=== PATIENT | male | born 1970 ===

== ENCOUNTER 2018-04-09 13:57 | Inpatient (IN) ==
[2018-04-09] MEDS ORDERED: PROMETHAZINE 25 MG/1 ML VIAL IM PRN (17:20)
[2018-04-09] MEDS ORDERED: ONDANSETRON 4 MG/2 ML VIAL IV PRN (17:20)
[2018-04-09] MEDS ORDERED: NICOTINE 21 MG/24 HR PATCH TRANSDERM PRN (17:26)
[2018-04-09] MEDS: SODIUM CHLORIDE 0.9% 1,000 ML IV SCH (17:49)
[2018-04-09] MEDS: PIPERACILLIN/TAZOBACTAM 3,375 MG in SODIUM CHLORIDE 0.9% 100 ML IV SCH (17:49)
[2018-04-09 18:48] LABS: Basophils % 0.4 % (0.0-0.8); Eosinophils % 0.3 % (0.00-10.9); Hematocrit 48.5 VOL% (42.0-52.0); Immature Granulocytes % 0.3 %; Immature Granulocytes Absolute 0.03 #; Lymphocytes # 1.3 10*3/uL (1.4-4.0); Lymphocytes % 12.2 % (21.2-54.2); Mean Corpuscular Hemoglobin 31 PG (27-34); Mean Corpuscular Volume 92.4 FL (87-102); Mean Platelet Volume 8.9 FL (9.6-12.0); Monocytes # 1.1 10*3/uL (0.11-0.8); Monocytes % 9.9 % (1.7-12.7); Neutrophils # 8.2 10*3/uL (1.4-7.4); Neutrophils % 76.9 % (38.7-73.9); Platelet Count 169 T/CUMM (130-400); Red Blood Count 5.25 MC/CUMM (3.8-5.5); Red Cell Distribution Width 14.2 % (9.3-17.3); White Blood Count 10.7 T/CUMM (4-12)
[2018-04-09] MEDS: KETOROLAC 30 MG/1 ML VIAL IV SCH ×2 (18:49→23:32)
[2018-04-09 18:56] LABS: INR 1.1; PT Patient Result 11.3 SECS
[2018-04-09 19:44] LABS: Albumin 3.2 G/DL (3.4-5.0); Bilirubin,Total 1.1 MG/DL (0.2-1.0); Calcium 8.4 MG/DL (8.5-10.1); Osmolality,Calculated 274.7 MOS/KG (273-304); Potassium 3.6 MMOL/L (3.5-5.1); Total Protein 7.4 G/DL (6.4-8.3)
[2018-04-09 21:29] LABS: Apearance,Urine Slightly Hazy (Clear); Bilirubin,Urine Negative (Negative); Blood, Urine Negative (Negative); Glucose,Urine (UA) Negative (Negative); Ketones,Urine 20 mg/dL (Negative); Mucus,Urine Occasional /LPF (Occasional); Nitrite,Urine Negative (Negative); Protein,Urine Negative; RBC,Urine 3 /HPF (0-4); Squamous Epithelial Cell,Urine Occasional /HPF (0-10); Urine Color Amber (Yellow); Urine Specific Gravity 1.024 (1.001-1.035); WBC,Urine 23 /HPF (0-6)
[2018-04-10] MEDS: PIPERACILLIN/TAZOBACTAM 3,375 MG in SODIUM CHLORIDE 0.9% 100 ML IV SCH ×3 (01:27→22:23)
[2018-04-10 05:54] LABS: Basophils # 0.1 10*3/uL (0.0-0.2); Basophils % 0.4 % (0.0-0.8); Hematocrit 45.7 VOL% (42.0-52.0); Hemoglobin 15.1 GM/DL (14.0-18.0); Immature Granulocytes % 0.5 %; Immature Granulocytes Absolute 0.08 #; Lymphocytes # 1.6 10*3/uL (1.4-4.0); Lymphocytes % 10.5 % (21.2-54.2); Mean Corpuscular Hemoglobin 30 PG (27-34); Mean Corpuscular Volume 91.2 FL (87-102); Mean Platelet Volume 9.3 FL (9.6-12.0); Monocytes # 1.5 10*3/uL (0.11-0.8); Monocytes % 9.8 % (1.7-12.7); Neutrophils # 12.3 10*3/uL (1.4-7.4); Neutrophils % 78.8 % (38.7-73.9); Platelet Count 178 T/CUMM (130-400); Red Blood Count 5.01 MC/CUMM (3.8-5.5); Red Cell Distribution Width 14.2 % (9.3-17.3); White Blood Count 15.5 T/CUMM (4-12)
[2018-04-10] MEDS: KETOROLAC 30 MG/1 ML VIAL IV SCH ×4 (06:00→22:38)
[2018-04-10 06:30] LABS: Bilirubin,Total 2.3 MG/DL (0.2-1.0); Calcium 8.2 MG/DL (8.5-10.1); Total Protein 7.1 G/DL (6.4-8.3)
[2018-04-10 06:31] LABS: Osmolality,Calculated 274.7 MOS/KG (273-304); Potassium 3.1 MMOL/L (3.5-5.1)
[2018-04-10] MEDS: SODIUM CHLORIDE 0.9% 1,000 ML IV SCH ×2 (07:45→09:58)
[2018-04-10 08:49] LABS: Risk Ratio 6.35; VLDL CHOLESTEROL 21.6 MG/DL
[2018-04-10] MEDS ORDERED: MAGNESIUM SULF RIDER 2 GM in PREMIX 1 EACH IV ONE (09:38)
[2018-04-10] MEDS: LACTATED RINGERS 1,000 ML IV SCH ×3 (09:55→22:38)
[2018-04-10] MEDS: PANTOPRAZOLE 40 MG VIAL IV SCH (09:57)
[2018-04-10] MEDS: POTASSIUM CHLORIDE RIDER 10 MEQ in PREMIX 1 EACH IV SCH ×5 (09:57→22:00)
[2018-04-10] MEDS: ALBUTEROL/IPRATROPIUM 3 ML NEB RESP TX SCH (19:22)
[2018-04-10] MEDS: POTASSIUM CHLORIDE RIDER 10 MEQ in PREMIX 1 EACH IV PRN ×2 (20:19→22:25)
[2018-04-10] MEDS ORDERED: AZITHROMYCIN INJ 500 MG in SODIUM CHLORIDE 0.9% 250 ML IV ONE (21:00)
[2018-04-11] MEDS: ALBUTEROL/IPRATROPIUM 3 ML NEB RESP TX SCH ×4 (00:38→19:26)
[2018-04-11] MEDS: LACTATED RINGERS 1,000 ML IV SCH (04:08)
[2018-04-11] MEDS: KETOROLAC 30 MG/1 ML VIAL IV SCH (05:23)
[2018-04-11] MEDS: PIPERACILLIN/TAZOBACTAM 3,375 MG in SODIUM CHLORIDE 0.9% 100 ML IV SCH (05:24)
[2018-04-11 07:12] LABS: Basophils # 0.1 10*3/uL (0.0-0.2); Basophils % 0.5 % (0.0-0.8); Eosinophils % 0.3 % (0.00-10.9); Hematocrit 39.4 VOL% (42.0-52.0); Hemoglobin 13.8 GM/DL (14.0-18.0); Immature Granulocytes % 0.5 %; Immature Granulocytes Absolute 0.06 #; Lymphocytes # 1.7 10*3/uL (1.4-4.0); Lymphocytes % 13.4 % (21.2-54.2); Mean Corpuscular Hemoglobin 31 PG (27-34); Mean Corpuscular Volume 88.3 FL (87-102); Mean Platelet Volume 9.2 FL (9.6-12.0); Monocytes # 1.3 10*3/uL (0.11-0.8); Neutrophils # 9.4 10*3/uL (1.4-7.4); Neutrophils % 75.3 % (38.7-73.9); Platelet Count 158 T/CUMM (130-400); Red Blood Count 4.46 MC/CUMM (3.8-5.5); Red Cell Distribution Width 13.7 % (9.3-17.3); White Blood Count 12.4 T/CUMM (4-12)
[2018-04-11 07:45] LABS: Albumin 2.6 G/DL (3.4-5.0); Bilirubin,Total 1.7 MG/DL (0.2-1.0); Calcium 7.6 MG/DL (8.5-10.1); Free T4 (Free Thyroxine) 1.06 NG/DL (0.76-1.46); Potassium 3.5 MMOL/L (3.5-5.1); Total Protein 5.9 G/DL (6.4-8.3)
[2018-04-11] MEDS: PANTOPRAZOLE 40 MG VIAL IV SCH (08:25)
[2018-04-11] MEDS ORDERED: oxyCODONE/ACETAMINOPHEN 5-325 MG TABLET PO PRN (14:09)
[2018-04-11] MEDS ORDERED: MORPHINE 4 MG/1 ML VIAL IV PRN (14:10)
[2018-04-11] MEDS: LACTATED RINGERS 3,000 ML IV SCH (14:39)
[2018-04-12] MEDS: ALBUTEROL/IPRATROPIUM 3 ML NEB RESP TX SCH ×4 (00:57→19:27)
[2018-04-12 05:46] LABS: Basophils # 0.1 10*3/uL (0.0-0.2); Basophils % 0.4 % (0.0-0.8); Eosinophils % 0.3 % (0.00-10.9); Hematocrit 40.2 VOL% (42.0-52.0); Hemoglobin 13.8 GM/DL (14.0-18.0); Immature Granulocytes % 0.7 %; Immature Granulocytes Absolute 0.09 #; Lymphocytes # 1.5 10*3/uL (1.4-4.0); Lymphocytes % 11.5 % (21.2-54.2); Mean Corpuscular HGB Conc 34.3 GM/DL (32-36); Mean Corpuscular Hemoglobin 31 PG (27-34); Mean Corpuscular Volume 89.9 FL (87-102); Mean Platelet Volume 9.2 FL (9.6-12.0); Monocytes # 1.1 10*3/uL (0.11-0.8); Monocytes % 7.9 % (1.7-12.7); Neutrophils # 10.6 10*3/uL (1.4-7.4); Neutrophils % 79.2 % (38.7-73.9); Platelet Count 202 T/CUMM (130-400); Red Blood Count 4.47 MC/CUMM (3.8-5.5); Red Cell Distribution Width 13.4 % (9.3-17.3); White Blood Count 13.4 T/CUMM (4-12)
[2018-04-12 06:34] LABS: Albumin 2.6 G/DL (3.4-5.0); Bilirubin,Total 1.2 MG/DL (0.2-1.0); Calcium 8.4 MG/DL (8.5-10.1); Osmolality,Calculated 267.1 MOS/KG (273-304); Potassium 3.4 MMOL/L (3.5-5.1); Total Protein 6.7 G/DL (6.4-8.3)
[2018-04-12] MEDS: LACTATED RINGERS 3,000 ML IV SCH (09:57)
[2018-04-12] MEDS: POTASSIUM CHLORIDE 20 MEQ TABLET PO PRN ×2 (19:20→20:17)
[2018-04-13] MEDS: POTASSIUM CHLORIDE 20 MEQ TABLET PO PRN (00:14)
[2018-04-13] MEDS: LACTATED RINGERS 3,000 ML IV SCH (00:14)
[2018-04-13] MEDS: ALBUTEROL/IPRATROPIUM 3 ML NEB RESP TX SCH ×3 (01:33→13:58)
[2018-04-13 12:24] VITALS: BP 119/72
== END 2018-04-13 15:20 | disposition home or self-care (01) | DRG 439 ==
LOC: INTOOBSV 14:25 → N.5E 16:23 → SUATTDRO 16:23
PROVIDERS: ADMIT Internal Medicine; ATTEND Internal Medicine